=== PATIENT | female | born 1995 | race Caucasian/White ===

== ENCOUNTER 2019-08-09 12:01 | Emergency (ER) | payer SELFPAY ==
--- NOTE | 2019-08-09 13:22 | RAD ---
CHEST TWO VIEWS: HISTORY: Cough. Congestion. Sore throat. FINDINGS: Heart size is within normal limits. The lungs are clear. IMPRESSION: No significant acute intrathoracic disease. POS: [facility]
== END 2019-08-09 13:40 | disposition home or self-care (01) ==
LOC: NAV ERS 12:01
DX: J20.8 Acute bronchitis due to other specified organisms (principal); J02.8 Acute pharyngitis due to other specified organisms; E11.649 Type 2 diabetes mellitus with hypoglycemia without coma; Z79.899 Other long term (current) drug therapy
CPT/HCPCS: 71046; 87070; 87081; 87205; 87430; 87804; 94640; J7620